=== PATIENT | female | born 1990 | race Caucasian/White ===

== ENCOUNTER 2017-01-28 10:40 | Emergency (ER) | payer OTHER ==
[~2017-01-28] VITALS: Ht 157.5 cm; Wt 78.0 kg
[2017-01-28 10:59] VITALS: BP 113/73
--- NOTE | 2017-01-28 12:41 | NUR ---
PATIENT PRESENTS TO ED DUE TO C/o heartburn WITH CHEST PAIN AND SOB AND MAKES HER ANXIOUS x 2 days--- severe nausea AND DIZZINESS AND WHEN HAVING MENSTRUATION BLEEDING COMES A LOT AND WILL STOP hx---fatty liver, kidney stone SKIN IS PINK/WARM/DRY; AAOX4 WITH EVEN AND STEADY GAIT; LUNGS CLEAR BL; HR EVEN AND REGULAR; PT DENIES ANY FEVER,OR COUGH AT THIS TIME; PATIENT STATES PAIN OF 6/10 AT THIS TIME/CHEST; PATIENT POSITIONED FOR COMFORT; HOB ELEVATED; BEDRAILS UP X2; BED DOWN. ER MD MADE AWARE OF PT STATUS.
--- NOTE | 2017-01-28 12:41 | NUR ---
Diaz parra in [facility] - 01/28/17 at 1351 by QUE PT AMBULATED TO BED 7.
--- NOTE | 2017-01-28 13:48 | NUR ---
RELAYED TO DR. JARAMILLO RESULT OF URINE DIPSTICK AND URINE
[2017-01-28] MEDS ORDERED: ALUMINUM HYD/MAG/SIMETHICONE 30 ML, DICYCLOMINE HCL LIQUID 20 MG, LIDOCAINE VISCOUS 2% ... PO ONE ×3 (14:00)
[2017-01-28 14:09] LABS: APPEARANCE,URINE CLEAR (CLEAR); BILIRUBIN,URINE NEGATIVE (NEGATIVE); BLOOD, URINE 3+ (NEGATIVE); COLOR,URINE YELLOW (YELLOW); LEUKOCYTE ESTERASE ,URINE NEGATIVE (NEGATIVE); NITRITE, URINE NEGATIVE (NEGATIVE); PROTEIN,URINE NEGATIVE (NEGATIVE); UGLUCOSE NEGATIVE (NEGATIVE); UROBILINOGEN,URINE 0.2 EU/dL (0.2 - 1)
[2017-01-28 14:23] LABS: BACTERIA,URINE 1-9 (FEW) /HPF (None Seen); RBC,URINE 11-20 (MOD) /HPF (0-5)
--- NOTE | 2017-01-28 14:30 | NUR ---
EKG ON GOING
[2017-01-28 15:00] VITALS: BP 101/67
--- NOTE | 2017-01-28 15:00 | NUR ---
Patient discharged with v/s stable. Written and verbal after care instructions given and explained. Patient alert, oriented and verbalized understanding of instructions. Ambulatory with steady gait. All questions addressed prior to discharge. ID band removed. Patient advised to follow up with PMD. Rx of PROTONIX given. Patient educated on indication of medication including possible reaction and side effects. Opportunity to ask questions provided and answered. ENCOURAGED FLUID INTAKE AND PT AGREED WITH IT
== END 2017-01-28 15:00 | disposition home or self-care (01) ==
LOC: MED 10:40
DX: K21.9 Gastro-esophageal reflux disease without esophagitis (principal); Z87.442 Personal history of urinary calculi
CPT/HCPCS: 81001; 81025; 93005; 99285

== ENCOUNTER 2017-03-02 21:31 | Emergency (ER) | payer OTHER ==
[~2017-03-02] VITALS: Ht 157.5 cm; Wt 72.6 kg
[2017-03-02 21:45] VITALS: BP 106/70
--- NOTE | 2017-03-02 22:02 | NUR ---
TO ER BED 6
--- NOTE | 2017-03-02 22:07 | NUR ---
27 Y/O F W/C/O VAGINAL ITCHING, burning and small white clear discharge x today. denies any bleeding. no s/s of distress noted at the moment.
--- NOTE | 2017-03-02 22:27 | NUR ---
Pelvic exam performed by DR SANTOS with ME at bedside for entire examination. Patient tolerated procedure WELL. Patient assisted to position of comfort after examination.
[2017-03-02] MEDS ORDERED: KETOROLAC 60 MG/2 ML VIAL IM ONE (22:30)
[2017-03-02] MEDS ORDERED: SULFAMETH/TRIMETH DS 800/160MG 1 TAB PO ONE (22:30)
--- NOTE | 2017-03-02 22:40 | NUR ---
ANTIBIOTIC OITMENT APPLIED TO IRRITATED AREAS ON OUTER VAGINAL AREAS PER ER MD VERBAL ORDERS.
[2017-03-02] MEDS ORDERED: BACITRACIN OINT 500 UNITS/GM PKT TP ONE (22:47)
[2017-03-02 23:05] VITALS: BP 108/60
--- NOTE | 2017-03-02 23:05 | NUR ---
Patient discharged with v/s stable. Written and verbal after care instructions given and explained. Patient alert, oriented and verbalized understanding of instructions. Ambulatory with steady gait. All questions addressed prior to discharge. ID band removed. Patient advised to follow up with PMD OR RETURN TO ER IF CONDITION WORSENS. Rx of NEOSPORIN, CLINDAMYCIN AND MOTRIN given. Patient educated on indication of medication including possible reaction and side effects. Opportunity to ask questions provided and answered.
== END 2017-03-02 23:05 | disposition home or self-care (01) ==
LOC: MED 21:31
DX: N76.2 Acute vulvitis (principal)
CPT/HCPCS: 81002; 96372; 99283; J1885

== ENCOUNTER 2017-04-17 22:49 | Emergency (ER) | payer OTHER ==
[~2017-04-17] VITALS: Ht 157.5 cm; Wt 78.0 kg
[2017-04-17 23:21] VITALS: BP 137/78
--- NOTE | 2017-04-18 00:20 | NUR ---
PATIENT LEFT WITHOUT BEING SEEN BY DR. HADLEY. NO FURTHER CARE PROVIDED FOR PATIENT.
== END 2017-04-18 00:20 | disposition left against medical advice (07) ==
LOC: MED 22:49
DX: R06.02 Shortness of breath (principal); Z53.21 Procedure and treatment not carried out due to patient leaving prior to being seen by health care provider

== ENCOUNTER 2017-05-20 21:47 | Emergency (ER) | payer OTHER ==
[~2017-05-20] VITALS: Ht 157.5 cm; Wt 77.6 kg
[2017-05-20 22:02] VITALS: BP 127/79
--- NOTE | 2017-05-20 22:17 | NUR ---
PATIENT LEFT WITHOUT BEING SEEN BY DR. REYES. NO FURTHER CARE PROVIDED FOR PATIENT.
== END 2017-05-20 22:17 | disposition left against medical advice (07) ==
LOC: MED 21:47
DX: R06.02 Shortness of breath (principal); J02.9 Acute pharyngitis, unspecified; Z53.21 Procedure and treatment not carried out due to patient leaving prior to being seen by health care provider

== ENCOUNTER 2018-01-12 08:11 | Emergency (ER) | payer OTHER ==
[~2018-01-12] VITALS: Ht 157.5 cm; Wt 71.2 kg
[2018-01-12 08:16] VITALS: BP 142/91
[2018-01-12] MEDS ORDERED: LORazepam 2 MG/ML VIAL IVP ONE (08:25)
--- NOTE | 2018-01-12 08:36 | NUR ---
27Y/F BIB C/O MID CHEST PAIN X 45 MINS TODAY AFTER TALKING ON THE PHONE WITH HER FATHER. VSS; PATIENT POSITIONED FOR COMFORT; HOB ELEVATED; BEDRAILS UP X1; BED DOWN. ER MD MADE AWARE OF PT STATUS.
[2018-01-12 09:20] LABS: BARBITURATE, URINE NEG. ng/ml (NEG <=200); BENZODIAZEPINE, URINE NEG. ng/mL (NEG <=200); CANNABINOID, URINE NEG. ng/mL (NEG <=50); COCAINE, URINE NEG. ng/mL (NEG <=300); OPIATE, URINE NEG. ng/mL (NEG <=2000); PHENCYCLIDINE SCREEN,URINE NEG. ng/mL (NEG <=25)
[2018-01-12 09:27] VITALS: BP 122/78
== END 2018-01-12 09:28 | disposition home or self-care (01) ==
LOC: MED 08:11
DX: F41.9 Anxiety disorder, unspecified (principal); Z79.899 Other long term (current) drug therapy
CPT/HCPCS: 80305; 93005; 96374; 99285; J2060

== ENCOUNTER 2018-02-09 21:20 | Emergency (ER) | payer OTHER ==
[~2018-02-09] VITALS: Ht 157.5 cm; Wt 75.7 kg
[2018-02-09 21:22] VITALS: BP 118/61
[2018-02-09 22:07] VITALS: BP 118/61
== END 2018-02-09 21:40 | disposition home or self-care (01) ==
LOC: MED 21:20
DX: K12.30 Oral mucositis (ulcerative), unspecified (principal)
CPT/HCPCS: 99283

== ENCOUNTER 2019-07-04 21:12 | Emergency (ER) | payer MEDICAID, OTHER ==
[~2019-07-04] VITALS: Ht 157.5 cm; Wt 67.6 kg
[2019-07-04 21:31] VITALS: BP 123/64
--- NOTE | 2019-07-04 21:31 | NUR ---
PT TAKEN TO BED 8
--- NOTE | 2019-07-04 21:35 | NUR ---
29 Y/O F PRESENTS TO ER C/O GENERALIZED ABDOMINAL PAIN X 2 HOURS. LMP ABOUT 2 MONTHS AGO, PER PT SHE IS IRREGULAR. PT STATES "I TOOK A TEST 3 WEEKS AGO AND ALL 3 TESTS WERE POSITIVE" PT IS G3,P2. ABDOMINAL PAIN IS 8/10, CONSTANT, SHARP PAIN. PT DENIES N/V/D. DENIES URINARY SYMTPOMS. DENIES VAGINAL BLEEDING AND VAGINAL DISCHARGE. NKA. NO MED HX. SAFETY MEASURES IN PLACE. WAITING FOR ERMD TO EVALUATE PT.
--- NOTE | 2019-07-04 22:12 | NUR ---
PT RESTING IN BED COMFORTABLY WITH BOYFRIEND AT BEDSIDE. WILL CONTINUE TO MONITOR.
--- NOTE | 2019-07-04 22:14 | NUR ---
Dr. Wang examining patient.
[2019-07-04 22:15] LABS: BASOPHILS % (AUTO) 0.4 % (0.0-2.0); EOSINOPHILS # (AUTO) 0.1 K/uL (0-0.4); EOSINOPHILS % (AUTO) 1.2 % (0.0-4.0); HEMATOCRIT 34.1 % (36-48); HEMOGLOBIN 11.1 g/dL (12.0-16.0); LYMPHOCYTES % (AUTO) 22.8 % (20.5-51.1); MEAN CORPUSCULAR HEMOGLOBIN 31 pg (27-31); MEAN CORPUSCULAR HGB CONC 33 g/dL (33-37); MEAN CORPUSCULAR VOLUME 95.5 fL (80-94); MONOCYTES # (AUTO) 0.5 K/uL (0.8-1.0); NEUTROPHILS # (AUTO) 6.1 K/uL (1.8-7.7); NEUTROPHILS % (AUTO) 69.6 % (42.2-75.2); PLATELET COUNT (AUTO) 275 K/uL (140-450); RED BLOOD CELL COUNT(AUTO) 3.57 MIL/uL (4.20-5.40); RED CELL DISTRIBUTION WIDTH 14.6 % (11.6-13.7); WHITE BLOOD COUNT (AUTO) 8.8 K/uL (4.8-10.8)
[2019-07-04 22:26] LABS: CARBON DIOXIDE 28.8 mmol/L (21-32); CREATININE 0.6 mg/dL (0.6-1.3); POTASSIUM 3.8 mmol/L (3.5-5.1)
[2019-07-04 22:27] LABS: APPEARANCE,URINE SL CLOUDY (CLEAR); BILIRUBIN,URINE NEGATIVE (NEGATIVE); BLOOD, URINE NEGATIVE (NEGATIVE); COLOR,URINE YELLOW (YELLOW); LEUKOCYTE ESTERASE ,URINE TRACE (NEGATIVE); NITRITE, URINE NEGATIVE (NEGATIVE); UGLUCOSE NEGATIVE (NEGATIVE)
[2019-07-04 22:33] LABS: TOTAL BILIRUBIN 0.1 mg/dL (0.0-1.0)
--- NOTE | 2019-07-04 22:34 | NUR ---
ULTRASOUND AT BEDSIDE
[2019-07-04 23:02] LABS: RBC,URINE 0-5 /HPF (0-5)
--- NOTE | 2019-07-04 23:30 | NUR ---
PT RESTING IN BED WITH EYES CLOSED, EASILY ARROUSABLE. WILL CONTINUE TO MONITOR.
--- NOTE | 2019-07-05 00:45 | NUR ---
PT RESTING IN BED COMFORTABLY WITH EYES CLOSED, EASILY ARROUSABLE. BOYFRIEND AT BEDSIDE. WILL CONTINUE TO MONITOR.
--- NOTE | 2019-07-05 01:15 | NUR ---
PT RESTING IN BED. ALL NEEDS MET AT THIS TIME. WILL CONTINUE TO MONITOR.
--- NOTE | 2019-07-05 02:59 | NUR ---
Patient discharged with v/s stable. Pt encouraged to rest and drink plenty of fluids. Written and verbal after care instructions given and explained. Patient verbalized understanding. Ambulatory with steady gait. All questions addressed prior to discharge. Advised to follow up with obgyn.
[2019-07-05 03:01] VITALS: BP 124/78
--- NOTE | 2019-07-05 06:24 | NUR ---
CALLED AND LEFT MESSAGE REGARDING ADDITIONAL DC RX AND PAPERS PER DR POWELL.
== END 2019-07-05 02:59 | disposition home or self-care (01) ==
LOC: MED 21:12
DX: O23.41 Unspecified infection of urinary tract in pregnancy, first trimester (principal); O21.8 Other vomiting complicating pregnancy; Z3A.01 Less than 8 weeks gestation of pregnancy
CPT/HCPCS: 36415; 76705; 76856; 80053; 81001; 81025; 84702; 85025; 87086; 99284

== ENCOUNTER 2019-07-05 17:33 | Emergency (ER) | payer MEDICAID ==
[~2019-07-05] VITALS: Ht 157.5 cm; Wt 68.9 kg
[2019-07-05 17:43] VITALS: BP 111/70
--- NOTE | 2019-07-05 17:54 | NUR ---
29F BIBA FOR ABD PAIN STARTING FROM RUQ AND RADIATING THROUGHOUT WHOLE ABD SINCE THIS AM, PT WAS D/C FROM OUR ER THIS AM BUT WAS UNALBLE TO FILL RX, PT STATES SHE WAS DIAGNOSED W/ GALL STONES. PT GIVEN 4MG ZOFRAN AND 50MCG IVP IN THE FIELD. PT IS 5 WEEKS . THE PAIN BECAME BACK AFTER D/C THIS AM AND BECOME INTOLERABLE, PROMPTING PT'S BOYFRIEND TO CALL 911. ABD TENDER TO PALPATION. HYPOACTIVE BS.
--- NOTE | 2019-07-05 18:17 | NUR ---
PATIENT IN BATHROOM HELPED BY SIGNIFICANT OTHER, TO PROVIDE URINE SAMPLE.
--- NOTE | 2019-07-05 18:22 | NUR ---
[employer]RUP MAKER COOK AT BEDSIDE. URINE SAMPLE HANDED TO [employer]PER[employer].
[2019-07-05 18:31] LABS: BASOPHILS % (AUTO) 0.3 % (0.0-2.0); EOSINOPHILS # (AUTO) 0.1 K/uL (0-0.4); EOSINOPHILS % (AUTO) 1.3 % (0.0-4.0); HEMATOCRIT 34.4 % (36-48); HEMOGLOBIN 11.2 g/dL (12.0-16.0); LYMPHOCYTES # (AUTO) 1.8 K/uL (2.5-16.5); LYMPHOCYTES % (AUTO) 20.3 % (20.5-51.1); MEAN CORPUSCULAR HEMOGLOBIN 31 pg (27-31); MEAN CORPUSCULAR HGB CONC 33 g/dL (33-37); MEAN CORPUSCULAR VOLUME 95.9 fL (80-94); MONOCYTES # (AUTO) 0.6 K/uL (0.8-1.0); MONOCYTES % (AUTO) 7.1 % (1.7-9.3); NEUTROPHILS # (AUTO) 6.2 K/uL (1.8-7.7); PLATELET COUNT (AUTO) 259 K/uL (140-450); RED BLOOD CELL COUNT(AUTO) 3.58 MIL/uL (4.20-5.40); RED CELL DISTRIBUTION WIDTH 14.9 % (11.6-13.7); WHITE BLOOD COUNT (AUTO) 8.7 K/uL (4.8-10.8)
[2019-07-05 18:35] LABS: APPEARANCE,URINE HAZY (CLEAR); BILIRUBIN,URINE NEGATIVE (NEGATIVE); BLOOD, URINE NEGATIVE (NEGATIVE); COLOR,URINE YELLOW (YELLOW); LEUKOCYTE ESTERASE ,URINE 2+ (NEGATIVE); NITRITE, URINE NEGATIVE (NEGATIVE); PH,URINE 6.5 (5.0-9.0); UGLUCOSE NEGATIVE (NEGATIVE)
--- NOTE | 2019-07-05 18:42 | NUR ---
NOTIFIED DR. CEVALLOS PT IN PAIN AND REQUESTING PAIN MED.
[2019-07-05 18:44] LABS: ANION GAP 8.4 (8-16); CARBON DIOXIDE 28.6 mmol/L (21-32); CREATININE 0.5 mg/dL (0.6-1.3)
[2019-07-05 18:50] LABS: TOTAL BILIRUBIN 0.1 mg/dL (0.0-1.0)
[2019-07-05 18:54] LABS: RBC,URINE NONE SEEN /HPF (0-5); WBC,URINE NONE SEEN /HPF (0-5)
[2019-07-05 18:55] LABS: URINE AMORPHOUS URATE 3+ /HPF (None Seen)
--- NOTE | 2019-07-05 19:00 | NUR ---
DR. POWELL SPEAKING WITH PATIENT AT BEDSIDE.
[2019-07-05] MEDS ORDERED: MORPHINE SULFATE 4 MG/ML SYR IVP ONE (19:10)
[2019-07-05] MEDS ORDERED: ONDANSETRON 4 MG/2 ML VIAL IVP ONE (19:10)
[2019-07-05] MEDS ORDERED: NACL 0.9% 1,000 ML IV ONE (19:10)
--- NOTE | 2019-07-05 19:12 | NUR ---
REPORT GIVEN TO JUNIOR NOLAN. TRANSFER OF CARE AT THIS TIME.
--- NOTE | 2019-07-05 19:35 | NUR ---
Ultrasound at bedside.
--- NOTE | 2019-07-05 21:14 | NUR ---
PATIENT IN NO DISTRESS AT THIS TIME. WILL CONTINUE TO MONITOR.
--- NOTE | 2019-07-05 23:12 | NUR ---
PATIENT IS SLEEPING AT THIS TIME. AT BEDSIDE. WILL CONTINUE TO MONITOR.
--- NOTE | 2019-07-05 23:46 | NUR ---
Diaz parra in [facility] - 07/05/19 at [address] Wang examining patient.
[2019-07-06 00:11] VITALS: BP 101/52
--- NOTE | 2019-07-06 00:11 | NUR ---
EPatient discharged with v/s stable. Written and verbal after care instructions given and explained. Patient verbalized understanding. Ambulatory with steady gait. All questions addressed prior to discharge. Advised to follow up with PMD.
== END 2019-07-06 00:11 | disposition home or self-care (01) ==
LOC: MED 17:33
DX: O99.611 Diseases of the digestive system complicating pregnancy, first trimester (principal); O21.8 Other vomiting complicating pregnancy; Z3A.08 8 weeks gestation of pregnancy
CPT/HCPCS: 36415; 76705; 80053; 81001; 83690; 84703; 85025; 96374; 96375; 99284; J2270; J2405; J7030; Q0092

== ENCOUNTER 2023-03-05 13:52 | Emergency (ER) | payer OTHER ==
[~2023-03-05] VITALS: Ht 157.5 cm; Wt 83.5 kg
[~2023-03-05 13:52] MED LIST: ACET-2619 PO; IBUP-2213 PO
[2023-03-05 13:55] VITALS: BP 108/72
--- NOTE | 2023-03-05 14:00 | NUR ---
pt ambulatory to bed 02
--- NOTE | 2023-03-05 14:48 | NUR ---
Patient discharged with v/s stable. Written and verbal after care instructions given and explained. Patient verbalized understanding. Ambulatory with steady gait. All questions addressed prior to discharge. Advised to follow up with PMD.
== END 2023-03-05 14:48 | disposition home or self-care (01) ==
LOC: MED 13:52
DX: T19.2XXA Foreign body in vulva and vagina, initial encounter (principal); Z79.899 Other long term (current) drug therapy; X58.XXXA Exposure to other specified factors, initial encounter; Y93.89 Activity, other specified; Y92.89 Other specified places as the place of occurrence of the external cause; Y99.8 Other external cause status
CPT/HCPCS: 99284

== ENCOUNTER 2024-01-06 15:19 | Inpatient (IN) | payer MEDICAID, OTHER ==
[~2024-01-06] VITALS: Ht 160 cm; Wt 72.6 kg
[2024-01-06 15:23] VITALS: BP 127/72; PULSE 127; RESP 13; TEMP 98.1; O2SAT 96
[2024-01-06] MEDS: NACL 0.9% 1,000 ML IV ONE ×2 (15:52→17:41)
[2024-01-06] MEDS: LORazepam 2 MG/ML VIAL IVP ONE ×2 (15:58→17:51)
[2024-01-06 16:08] LABS: BASOPHILS # (AUTO) 0.1 K/uL (0.00-0.22); BASOPHILS % (AUTO) 0.6 % (0.0-2.0); HEMOGLOBIN 12.7 g/dL (12.0-16.0); LYMPHOCYTES # (AUTO) 1.9 K/uL (2.5-16.5); LYMPHOCYTES % (AUTO) 17.9 % (20.5-51.1); MEAN CORPUSCULAR HEMOGLOBIN 30 pg (27-31); MEAN CORPUSCULAR HGB CONC 34 g/dL (33-37); MEAN CORPUSCULAR VOLUME 87.4 fL (80-94); MONOCYTES # (AUTO) 0.7 K/uL (0.8-1.0); MONOCYTES % (AUTO) 6.7 % (1.7-9.3); NEUTROPHILS # (AUTO) 7.8 K/uL (1.8-7.7); NEUTROPHILS % (AUTO) 74.8 % (42.2-75.2); PLATELET COUNT (AUTO) 311 K/uL (140-450); RED BLOOD CELL COUNT(AUTO) 4.24 MIL/uL (4.20-5.40); RED CELL DISTRIBUTION WIDTH 15.5 % (11.6-13.7); WHITE BLOOD COUNT (AUTO) 10.4 K/uL (4.8-10.8)
[2024-01-06 16:29] LABS: ANION GAP 20.4 (8-16); CALCIUM 9.4 mg/dL (8.5-10.1); CARBON DIOXIDE 19.6 mmol/L (21-32); CREATININE 0.8 mg/dL (0.6-1.3)
[2024-01-06 16:36] LABS: ALANINE AMINOTRANSFERASE 27 U/L (12-78); ALBUMIN 4.5 g/dL (3.4-5.0); ALKALINE PHOSPHATASE 88 U/L (50-136); ASPARTATE AMINOTRANSFERASE 27 U/L (15-37); BILIRUBIN,DIRECT 0.1 mg/dL (0.0-0.3); CREATINE KINASE, TOTAL 70 U/L (26-192); MAGNESIUM 1.9 mg/dL (1.8-2.4); TOTAL BILIRUBIN 0.7 mg/dL (0.0-1.0); TOTAL PROTEIN, SERUM 8.4 g/dL (6.4-8.2)
[2024-01-06 16:39] LABS: ALCOHOL, BLOOD < 3 mg/dL (<10); PHOSPHORUS 1.1 mg/dL (2.5-4.9)
[2024-01-06] MEDS: POTASSIUM CHLORIDE 10 MEQ TABER PO ONE ×2 (16:40→20:03)
[2024-01-06] MEDS: SODIUM PHOS / POTASSIUM PHOS 1 PKT PDR PO ONE (16:40)
[2024-01-06] MEDS ORDERED: SODIUM PHOS / POTASSIUM PHOS 1 PKT PDR ONE (18:03)
[2024-01-06] MEDS ORDERED: POTASSIUM CHLORIDE 10 MEQ TABER PO ONE ×2 (18:03→19:56)
[2024-01-06 18:07] LABS: APPEARANCE,URINE CLEAR (CLEAR); BILIRUBIN,URINE NEGATIVE (NEGATIVE); BLOOD, URINE 1+ (NEGATIVE); COLOR,URINE YELLOW (YELLOW); LEUKOCYTE ESTERASE ,URINE NEGATIVE (NEGATIVE); NITRITE, URINE NEGATIVE (NEGATIVE); PH,URINE 6.5 (5.0-9.0); PROTEIN,URINE NEGATIVE (NEGATIVE); UGLUCOSE NEGATIVE (NEGATIVE)
[2024-01-06 18:19] LABS: BARBITURATE, URINE NEGATIVE ng/ml (NEG <=200)
[2024-01-06 18:20] LABS: AMPHETAMINE, URINE POSITIVE ng/ml (NEG <=1000); BENZODIAZEPINE, URINE NEGATIVE ng/mL (NEG <=200); CANNABINOID, URINE NEGATIVE ng/mL (NEG <=50); COCAINE, URINE NEGATIVE ng/mL (NEG <=300); OPIATE, URINE NEGATIVE ng/mL (NEG <=2000); PHENCYCLIDINE SCREEN,URINE NEGATIVE ng/mL (NEG <=25)
[2024-01-06 18:29] LABS: BACTERIA,URINE FEW /HPF (None Seen); SQUAMOUS EPITHELIAL CELL,UR 4-10 (MOD) /LPF (0-3 (FEW)); WBC,URINE 0-5 /HPF (0-5)
[2024-01-06] MEDS ORDERED: HYDROcodone/APAP 5/325 MG 1 TAB TAB PO PRN (18:30)
[2024-01-06] MEDS ORDERED: ACETAMINOPHEN 325 MG TAB PO PRN (18:30)
[2024-01-06] MEDS ORDERED: MORPHINE SULFATE 2 MG/ML SYR IVP PRN (18:30)
[2024-01-06] MEDS ORDERED: ONDANSETRON 4 MG/2 ML VIAL IVP PRN (18:30)
[2024-01-06] MEDS: FOLIC ACID 1 MG TAB PO SCH (20:03)
[2024-01-06] MEDS: MULTIVITAMIN 1 TAB PO SCH (20:18)
[2024-01-06 20:27] VITALS: O2SAT 99
[2024-01-06 20:56] VITALS: PULSE 121
[2024-01-06 22:00] VITALS: PULSE 114; RESP 19; O2SAT 100
[2024-01-06] MEDS: POTASSIUM PHOSPHATE 15 MM in NACL 0.9% 250 ML IV SCH (22:07)
[2024-01-06] MEDS: THIAMINE 200 MG/2 ML VIAL IV SCH (22:08)
[2024-01-07] VITALS: BP 143/90; PULSE 102; PULSE 118; RESP 18; TEMP 98.3; O2SAT 100
[2024-01-07] MEDS: LORazepam 2 MG/ML VIAL IVP PRN (00:13)
[2024-01-07 04:00] VITALS: BP 101/68; PULSE 90; PULSE 99; RESP 18; TEMP 97.5; O2SAT 100
[2024-01-07 07:37] LABS: BASOPHILS # (AUTO) 0.1 K/uL (0.00-0.22); BASOPHILS % (AUTO) 0.8 % (0.0-2.0); EOSINOPHILS % (AUTO) 0.4 % (0.0-4.0); HEMATOCRIT 33.1 % (36-48); HEMOGLOBIN 11.1 g/dL (12.0-16.0); LYMPHOCYTES # (AUTO) 2.5 K/uL (2.5-16.5); LYMPHOCYTES % (AUTO) 36.2 % (20.5-51.1); MEAN CORPUSCULAR HEMOGLOBIN 30 pg (27-31); MEAN CORPUSCULAR HGB CONC 34 g/dL (33-37); MEAN CORPUSCULAR VOLUME 88.6 fL (80-94); MONOCYTES # (AUTO) 0.6 K/uL (0.8-1.0); MONOCYTES % (AUTO) 8.1 % (1.7-9.3); NEUTROPHILS # (AUTO) 3.8 K/uL (1.8-7.7); NEUTROPHILS % (AUTO) 54.5 % (42.2-75.2); PLATELET COUNT (AUTO) 249 K/uL (140-450); RED BLOOD CELL COUNT(AUTO) 3.73 MIL/uL (4.20-5.40); RED CELL DISTRIBUTION WIDTH 15.5 % (11.6-13.7); WHITE BLOOD COUNT (AUTO) 6.9 K/uL (4.8-10.8)
[2024-01-07 07:57] LABS: MAGNESIUM 2.2 mg/dL (1.8-2.4); PHOSPHORUS 3.3 mg/dL (2.5-4.9)
[2024-01-07 08:00] VITALS: BP 104/69; PULSE 131; PULSE 97; RESP 18; TEMP 97.8; O2SAT 100
[2024-01-07 08:09] LABS: ALBUMIN 3.3 g/dL (3.4-5.0); ANION GAP 14.2 (8-16); CALCIUM 8.5 mg/dL (8.5-10.1); CARBON DIOXIDE 22.7 mmol/L (21-32); CREATININE 0.5 mg/dL (0.6-1.3); POTASSIUM 3.9 mmol/L (3.5-5.1); TOTAL BILIRUBIN 0.5 mg/dL (0.0-1.0); TOTAL PROTEIN, SERUM 6.6 g/dL (6.4-8.2)
[2024-01-07 13:00] VITALS: BP 118/74; PULSE 106; PULSE 90; RESP 18; TEMP 97.4; O2SAT 100
[2024-01-07 16:00] VITALS: BP 103/76; PULSE 92; PULSE 94; RESP 18; TEMP 98.3; O2SAT 100
[2024-01-07 20:00] VITALS: BP 121/74; PULSE 81; PULSE 94; RESP 17; TEMP 97.6; O2SAT 97
[2024-01-08] VITALS (7 sets, daily range): BP systolic 101–113; BP diastolic 61–75; PULSE 68–106; RESP 17–18; TEMP 96.9–98.6; O2SAT 98–99
[2024-01-08 07:04] LABS: BASOPHILS # (AUTO) 0.1 K/uL (0.00-0.22); BASOPHILS % (AUTO) 0.8 % (0.0-2.0); EOSINOPHILS # (AUTO) 0.1 K/uL (0-0.4); EOSINOPHILS % (AUTO) 1.3 % (0.0-4.0); HEMOGLOBIN 12.4 g/dL (12.0-16.0); LYMPHOCYTES # (AUTO) 2.5 K/uL (2.5-16.5); LYMPHOCYTES % (AUTO) 38.9 % (20.5-51.1); MEAN CORPUSCULAR HEMOGLOBIN 30 pg (27-31); MEAN CORPUSCULAR HGB CONC 33 g/dL (33-37); MONOCYTES # (AUTO) 0.6 K/uL (0.8-1.0); MONOCYTES % (AUTO) 8.6 % (1.7-9.3); NEUTROPHILS # (AUTO) 3.3 K/uL (1.8-7.7); NEUTROPHILS % (AUTO) 50.4 % (42.2-75.2); PLATELET COUNT (AUTO) 287 K/uL (140-450); RED BLOOD CELL COUNT(AUTO) 4.16 MIL/uL (4.20-5.40); RED CELL DISTRIBUTION WIDTH 15.7 % (11.6-13.7); WHITE BLOOD COUNT (AUTO) 6.4 K/uL (4.8-10.8)
[2024-01-08 07:14] LABS: ALBUMIN 3.7 g/dL (3.4-5.0); ANION GAP 10.8 (8-16); CALCIUM 9.1 mg/dL (8.5-10.1); CARBON DIOXIDE 27.9 mmol/L (21-32); CREATININE 0.6 mg/dL (0.6-1.3); POTASSIUM 3.7 mmol/L (3.5-5.1); TOTAL BILIRUBIN 0.6 mg/dL (0.0-1.0); TOTAL PROTEIN, SERUM 7.4 g/dL (6.4-8.2)
[2024-01-08 07:17] LABS: MAGNESIUM 2.3 mg/dL (1.8-2.4); PHOSPHORUS 4.4 mg/dL (2.5-4.9)
[2024-01-09] VITALS (7 sets, daily range): BP systolic 99–107; BP diastolic 61–68; PULSE 69–99; RESP 17–18; TEMP 97.6–98.6; O2SAT 95–99
[2024-01-09] MEDS: THIAMINE 100 MG TAB PO SCH (09:00)
[2024-01-09] MEDS ORDERED: FOLI1TAB90 PO (16:13)
[2024-01-09] MEDS ORDERED: THE PO (16:13)
[2024-01-09] MEDS ORDERED: THIA-34 PO (16:13)
== END 2024-01-09 18:00 | disposition home or self-care (01) | DRG 816 ==
LOC: MED 15:19 → MTU 18:37
PROVIDERS: ADMIT Internal Medicine; ATTEND Internal Medicine
DX: T51.0X1A Toxic effect of ethanol, accidental (unintentional), initial encounter (principal); E87.21 Acute metabolic acidosis; R65.10 Systemic inflammatory response syndrome (SIRS) of non-infectious origin without acute organ dysfunction; E44.0 Moderate protein-calorie malnutrition; E83.39 Other disorders of phosphorus metabolism; F10.239 Alcohol dependence with withdrawal, unspecified; F39 Unspecified mood [affective] disorder; Z68.28 Body mass index [BMI] 28.0-28.9, adult; D64.9 Anemia, unspecified
CPT/HCPCS: 36415; 80048; 80053; 80076; 80305; 81001; 82550; 83735; 84100; 84703; 85025; 87081; 96361; 96374; 99285; G0482; J2060; J3411; J7030